=== PATIENT | male | born 1965 | race American Indian/Alaskan Native ===

== ENCOUNTER 2017-02-08 07:30 | Day surgery (SDC) | payer OTHER ==
[~2017-02-08 07:30] MED LIST: Midazolam 1 MG/ML 2 ML SDV ONE; fentaNYL 100 MCG/2 ML SDV ONE
[2017-02-08] MEDS ORDERED: Dextrose 5%-0.45% NaCl 1,000 ML IV SCH (08:15)
[2017-02-08] MEDS ORDERED: fentaNYL 100 MCG/2 ML SDV IV ONE ×3 (08:32→15:08)
[2017-02-08] MEDS ORDERED: Midazolam 1 MG/ML 2 ML SDV IV ONE ×5 (08:33→15:08)
[2017-02-08 10:48] VITALS: BP 124/84
--- NOTE | 2017-02-08 11:10 | LETTER ---
02/08/2017 Dr. Del Angel [facility] [address] [place] [address] RE: OLENANASIRMichelle SHAIKH : [address] Angel: Mr. Juan Manuel Levi had colonoscopic examination done this morning and he tolerated the procedure well. I herewith send a copy of the endoscopy note and photographs for your review. Thank you. Sincerely, [facility] /[id number]
--- NOTE | 2017-02-08 11:32 | OR ---
DATE: 02/08/2017 PROCEDURE: Total colonoscopy. INSTRUMENT USED: CF-H180AL Olympus video colonoscope. Olympus disposable distal attachment. PREMEDICATIONS: Fentanyl 100 mcg intravenous, Versed 4 mg intravenous. The procedure was done under pulse oximetry, BP recording, and recovery operator helper. INDICATION: The patient with rectal bleeding. Colonoscopic examination is done for detection of any polypoid lesions and removal, endoscopic hemostasis therapy if needed. DESCRIPTION OF PROCEDURE: Initial rectal exam was unremarkable. Rigid anoscopy showed small internal hemorrhoids without bleeding from them. The colonoscope was passed with ease up to the ileocecal area, photographs were taken of the normal-appearing cecum, identified by landmarks of appendiceal orifice and double-bulged ileocecal folds. No bleeding was noted from any of the visualized areas at the commencement of the examination. No stricture. No vascular ectasia. No large isolated ulcerations seen. No evidence of diffuse inflammatory bowel disease in the form of friability, contact bleeding, or ulcerations. No polyp or tumor mass identified. Probing the proximal sides of folds and flexures, using adequate distention and clearing up the stool material, withdrawal of the scope was made, cecum to rectum time over 6 minutes. No bleeding was noted from any of the visualized areas at the completion of examination. IMPRESSION: Internal hemorrhoids. The patient tolerated the procedure well. [facility] /[id number]
== END 2017-02-08 10:51 | disposition home or self-care (01) ==
LOC: DL.ENDO 07:30
PROVIDERS: ATTEND Internal Medicine Gastroenterology
DX: K64.8 Other hemorrhoids (principal); I10 Essential (primary) hypertension; E11.9 Type 2 diabetes mellitus without complications; E78.5 Hyperlipidemia, unspecified; E66.9 Obesity, unspecified; F17.210 Nicotine dependence, cigarettes, uncomplicated; Z79.899 Other long term (current) drug therapy; Z98.890 Other specified postprocedural states; Z72.0 Tobacco use
CPT/HCPCS: 45378; J2250; J3010; J7042

== ENCOUNTER 2021-11-18 22:32 | Emergency (ER) | payer MEDICAID, OTHER ==
[2021-11-18 22:53] VITALS: PULSE 90
[2021-11-18 23:01] VITALS: BP 150/95
--- NOTE | 2021-11-18 23:24 | EDM.PDOC ---
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 Thigh pain intermittent. Left Upper Leg Pain Score (Numeric/FACES): 5 - Related Data Allergies Allergy/AdvReac Type Severity Reaction Status Date / Time No Known Allergies Allergy Verified 11/18/21 22:53 Home Meds: Home Meds Aspirin [Halfprin] 81 mg PO DAILY 02/05/17 [History] Cetirizine [ZyrTEC] 10 mg PO DAILY 02/05/17 [History] atorvaSTATin [Lipitor] 10 mg PO DAILY 02/05/17 [History] glipiZIDE [Glucotrol] 5 mg PO DAILY 02/05/17 [History] lisinopriL [Zestril] 40 mg PO DAILY 02/05/17 [History] metFORMIN HCl [Metformin HCl] 1,000 mg PO BIDMEALS 02/05/17 [History] Magnesium Oxide 1 tab PO DAILY 02/08/17 [History] Past Medical History HEENT History: Reports: Cataract Cardiovascular History: Reports: High Cholesterol, Hypertension Respiratory History: Reports: Asthma, SOB Gastrointestinal History: Reports: Chronic Constipation Genitourinary History: Reports: None Musculoskeletal History: Reports: Arthritis, Back Pain, Chronic Neurological History: Reports: None Psychiatric History: Reports: None Endocrine/Metabolic History: Reports: Diabetes, Type II, Obesity/BMI 30+ Hematologic History: Reports: Other (See Below) Other Hematologic History: LOW MG Immunologic History: Reports: None Oncologic (Cancer) History: Reports: None Dermatologic History: Reports: None - Infectious Disease History Infectious Disease History: Reports: Chicken Pox, Novel Coronavirus, Shingles - Past Surgical History Head Surgeries/Procedures: Reports: None HEENT Surgical History: Reports: None Cardiovascular Surgical History: Reports: None Respiratory Surgical History: Reports: None GI Surgical History: Reports: Other (See Below) Other GI Surgeries/Procedures: PERIRECTAL LUMP SURGERY Musculoskeletal Surgical History: Reports: None Social & Family History - Tobacco Use Tobacco Use Status *Q: Current Every Day Tobacco User Years of Tobacco use: 30 Packs/Tins Daily: 1 Second Hand Smoke Exposure: Yes - Caffeine Use Caffeine Use: Reports: Coffee Other Caffeine Use: 2 CUP COFFEE - Recreational Drug Use Recreational Drug Use: Yes Drug Use in Last 12 Months: Yes Recreational Drug Type: Reports: Marijuana/Hashish Recreational Drug Use Frequency: Rarely ED ROS GENERAL - Review of Systems Review Of Systems: Comprehensive ROS is negative, except as noted in HPI. ED EXAM, GENERAL - Physical Exam Exam: See Below Exam Limited By: No Limitations General Appearance: Alert, Anxious, Obese Eye Exam: Bilateral Eye: EOMI, PERRL Ears: Normal External Exam, Normal TMs Nose: Normal Inspection Throat/Mouth: Normal Inspection, Normal Voice, No Airway Compromise Head: Atraumatic, Normocephalic Neck: Normal Inspection Respiratory/Chest: No Respiratory Distress, Lungs Clear, Normal Breath Sounds Cardiovascular: Normal Peripheral Pulses, Regular Rate, Rhythm GI/Abdominal: Normal Bowel Sounds, No Distention Back Exam: Full Range of Motion Extremities: Normal Inspection, Normal Range of Motion. No: Limited Range of Motion Neurological: Alert, Oriented, Normal Cognition Psychiatric: Normal Affect Skin Exam: Warm, Dry, Intact, Normal Color #1 Interpretation EKG Date: 11/18/21 Time: 23:05 Rhythm: NSR Rate (Beats/Min): 88 P-Wave: Present QRS: Normal ST-T: Normal QT: Normal Comparison: NA - No Prior EKG Course - Vital Signs Last Recorded V/S: Last Vital Signs Temp 98.9 F 11/18/21 22:46 Pulse 90 11/18/21 22:46 Resp 18 11/18/21 22:46 BP 150/95 H 11/18/21 23:00 Pulse Ox 98 11/18/21 22:46 Orthostatic Blood Pressure [ 146/83 Standing] Orthostatic Blood Pressure [ 153/91 Sitting] Orthostatic Blood Pressure [ 151/86 Supine] - Orders/Labs/Meds Labs: Laboratory Tests 11/18/21 11/18/21 11/18/21 Range/Units 23:15 23:15 23:15 WBC 4.9 L (5.0-10.0) 10^3/uL RBC 4.65 (4.6-6.2) 10^6/uL Hgb 14.0 (14.0-18.0) g/dL Hct 42.3 (40.0-54.0) % MCV 91.0 (80-100) fL MCH 30.1 (27.0-34.0) pg MCHC 33.1 (33.0-35.0) g/dL Plt Count 216 (150-450) 10^3/uL Neut % (Auto) 61.0 (42.2-75.2) % Lymph % (Auto) 23.0 (20.5-50.1) % Stonewall % (Auto) 10.5 H (2-8) % Eos % (Auto) 5.3 H (1.0-3.0) % Baso % (Auto) 0.2 (0.0-1.0) % D-Dimer, Quantitative 131 (0-400) ng/mL Sodium 135 L (136-145) mmol/L Potassium 4.0 (3.5-5.1) mmol/L Chloride 100 (98-107) mmol/L Carbon Dioxide 23 (21-32) mmol/L Anion Gap 16.0 H (7-13) mEq/L BUN 25 H (7-18) mg/dL Creatinine 1.24 (0.70-1.30) mg/dL Est Cr Clr Drug Dosing 65.89 mL/min Estimated GFR (MDRD) > 60 BUN/Creatinine Ratio 20.2 (No establ ref range) Glucose 184 H (70-99) mg/dL Calcium 8.7 (8.5-10.1) mg/dL Total Bilirubin 0.2 (0.2-1.0) mg/dL AST 13 L (15-37) U/L ALT 27 (16-63) U/L Alkaline Phosphatase 75 (46-116) U/L Troponin I High Sens 5 (<=76) pg/mL Total Protein 7.5 (6.4-8.2) g/dL Albumin 3.7 (3.4-5.0) g/dL Globulin 3.8 Albumin/Globulin Ratio 1.0 Influenza Type A RNA (NEGATIVE) Influenza Type B RNA (NEGATIVE) SARS-CoV-2 RNA (DAVID) (NEGATIVE) 11/18/21 Range/Units 23:34 WBC (5.0-10.0) 10^3/uL RBC (4.6-6.2) 10^6/uL Hgb (14.0-18.0) g/dL Hct (40.0-54.0) % MCV (80-100) fL MCH (27.0-34.0) pg MCHC (33.0-35.0) g/dL Plt Count (150-450) 10^3/uL Neut % (Auto) (42.2-75.2) % Lymph % (Auto) (20.5-50.1) % Stonewall % (Auto) (2-8) % Eos % (Auto) (1.0-3.0) % Baso % (Auto) (0.0-1.0) % D-Dimer, Quantitative (0-400) ng/mL Sodium (136-145) mmol/L Potassium (3.5-5.1) mmol/L Chloride (98-107) mmol/L Carbon Dioxide (21-32) mmol/L Anion Gap (7-13) mEq/L BUN (7-18) mg/dL Creatinine (0.70-1.30) mg/dL Est Cr Clr Drug Dosing mL/min Estimated GFR (MDRD) BUN/Creatinine Ratio (No establ ref range) Glucose (70-99) mg/dL Calcium (8.5-10.1) mg/dL Total Bilirubin (0.2-1.0) mg/dL AST (15-37) U/L ALT (16-63) U/L Alkaline Phosphatase (46-116) U/L Troponin I High Sens (<=76) pg/mL Total Protein (6.4-8.2) g/dL Albumin (3.4-5.0) g/dL Globulin Albumin/Globulin Ratio Influenza Type A RNA Negative (NEGATIVE) Influenza Type B RNA Negative (NEGATIVE) SARS-CoV-2 RNA (DAVID) Negative (NEGATIVE) Departure - Departure Time of Disposition: 00:46 Disposition: Home, Self-Care 01 Condition: Good Clinical Impression: Left thigh pain Hypertensive heart disease Qualifiers: Heart failure presence: without heart failure Qualified Code(s): I11.9 - Hypertensive heart disease without heart failure Referrals: José Miguel Forrester [Primary Care Provider] - Forms: ED Department Discharge Additional Instructions: alternate tylenol and ibuprofen every 4 hours as needed for discomfort take home medications as prescribed rest decrease or stop tobacco use clinic recheck BP
[2021-11-18 23:42] LABS: CHLORIDE,CL 100 mmol/L (98-107); SODIUM,NA 135 mmol/L (136-145)
[2021-11-19 00:28] LABS: CORONAVIRUS COVID-19 NAA NEGATIVE (NEGATIVE)
== END 2021-11-19 00:59 | disposition home or self-care (01) ==
LOC: DL.ED 22:32
DX: M79.652 Pain in left thigh (principal); I11.0 Hypertensive heart disease with heart failure; I50.9 Heart failure, unspecified; E78.00 Pure hypercholesterolemia, unspecified; J45.909 Unspecified asthma, uncomplicated; M19.90 Unspecified osteoarthritis, unspecified site; E11.9 Type 2 diabetes mellitus without complications; E66.9 Obesity, unspecified; Z68.41 Body mass index [BMI] 40.0-44.9, adult; Z72.0 Tobacco use; Z79.82 Long term (current) use of aspirin; Z79.84 Long term (current) use of oral hypoglycemic drugs; Z79.899 Other long term (current) drug therapy; Z20.822 Contact with and (suspected) exposure to COVID-19
CPT/HCPCS: 0240U; 36415; 80053; 84484; 85025; 85379; 93005; 99284

== ENCOUNTER 2022-05-02 14:54 | Emergency (ER) | payer MEDICAID ==
[2022-05-02 15:12] VITALS: BP 165/92; PULSE 86
[2022-05-02 16:10] LABS: ANION GAP 13.1 mEq/L (7-13); CHLORIDE,CL 102 mmol/L (98-107); SODIUM,NA 139 mmol/L (136-145)
[2022-05-02] MEDS ORDERED: Magnesium Sulfate/Water 2 GM in Premix Bag 1 BAG IV ONE ×2 (16:19→16:50)
== END 2022-05-02 17:31 | disposition home or self-care (01) ==
LOC: DL.ED 14:54
DX: E83.42 Hypomagnesemia (principal); E78.00 Pure hypercholesterolemia, unspecified; I10 Essential (primary) hypertension; E11.9 Type 2 diabetes mellitus without complications; F17.210 Nicotine dependence, cigarettes, uncomplicated; E66.9 Obesity, unspecified; Z68.39 Body mass index [BMI] 39.0-39.9, adult; Z86.16 Personal history of COVID-19
CPT/HCPCS: 36415; 71045; 80053; 82150; 83690; 83735; 83880; 84443; 84484; 85025; 93005; 96365; 96366; 99285; J3475; 93010

== ENCOUNTER 2024-02-26 13:21 | Emergency (ER) | payer MEDICAID ==
[2024-02-26 13:44] VITALS: BP 152/89; PULSE 81
[2024-02-26 14:16] LABS: BASOPHILS PERCENT AUTO 0.1 % (0.0-1.0); EOSINOPHILS PERCENT AUTO 1.9 % (1.0-3.0); HEMATOCRIT 41.7 % (40.0-54.0); LYMPHOCYTES PERCENT AUTO 16.9 % (20.5-50.1); MEAN CORPUSCULAR HEMOGLOBIN 29.4 pg (27.0-34.0); MEAN CORPUSCULAR HGB CONC 33.6 g/dL (33.0-35.0); MEAN CORPUSCULAR VOLUME 87.4 fL (80-100); MONOCYTES PERCENT AUTO 6.8 % (2-8); NEUTROPHILS PERCENT AUTO 74.3 % (42.2-75.2); PLATELET COUNT,PLT 209 10^3/uL (150-450); RED BLOOD CELL COUNT 4.77 10^6/uL (4.6-6.2); WHITE BLOOD CELL COUNT,WBC 6.8 10^3/uL (5.0-10.0)
[2024-02-26] MEDS: Acetaminophen 500 MG Tab PO ONE (14:29)
[2024-02-26 14:37] LABS: ALANINE AMINOTRANSFERASE,ALT 28 U/L (16-63); ALKALINE PHOSPHATASE 95 U/L (46-116); ASPARTATE AMNIOTRANSFERASE,AST 13 U/L (15-37); BILIRUBIN TOTAL 0.4 mg/dL (0.2-1.0); BLOOD UREA NITROGEN,BUN 13 mg/dL (7-18); BUN/CREATININE RATIO 13.1 (No establ ref range); CALCIUM 9.2 mg/dL (8.5-10.1); CARBON DIOXIDE,CO2 25 mmol/L (21-32); CHLORIDE,CL 101 mmol/L (98-107); CREATININE 0.99 mg/dL (0.70-1.30); EST CRCL DRUG DOSING (CG) 80.61 mL/min; GLUCOSE RANDOM 143 mg/dL (70-99); LIPASE 64 U/L (16-77); PROTEIN TOTAL,TP 7.9 g/dL (6.4-8.2); SODIUM,NA 138 mmol/L (136-145)
[2024-02-26 14:42] LABS: C-REACTIVE PROTEIN < 0.50 ng/dL (<=0.50); ESTIMATED GFR 89 mL/min (>=60)
[2024-02-26 14:45] LABS: APPEARANCE,URINE CLEAR (CLEAR); BILIRUBIN,URINE NEGATIVE (NEGATIVE); COLOR,URINE YELLOW (YELLOW); GLUCOSE,URINE NEGATIVE (NEGATIVE); KETONES,URINE NEGATIVE (NEGATIVE); LEUKOCYTE ESTERASE,URINE NEGATIVE (NEGATIVE); NITRITE,URINE NEGATIVE (NEGATIVE); OCCULT BLOOD,URINE NEGATIVE (NEGATIVE); PH,URINE 6.5 (5.0-9.0); PROTEIN,URINE NEGATIVE (NEGATIVE); UROBILINOGEN,URINE 0.2 mg/dL (0.2-1.0)
[2024-02-26] MEDS: Ketorolac 30 MG/ML SDV IVPUSH ONE (15:18)
[2024-02-26] MEDS: Sodium Chloride 0.9% 10 ML Syringe FLUSH PRN (15:19)
[2024-02-26] MEDS: Iopamidol 612 MG/ML 100 ML Bottle IVPUSH ONE (16:11)
== END 2024-02-26 16:45 | disposition home or self-care (01) ==
LOC: DL.ED 13:21
DX: R10.12 Left upper quadrant pain (principal); I10 Essential (primary) hypertension; E11.9 Type 2 diabetes mellitus without complications; E66.9 Obesity, unspecified; F17.210 Nicotine dependence, cigarettes, uncomplicated; Z86.16 Personal history of COVID-19; Z79.84 Long term (current) use of oral hypoglycemic drugs; Z79.899 Other long term (current) drug therapy; Z79.82 Long term (current) use of aspirin; Z68.34 Body mass index [BMI] 34.0-34.9, adult
CPT/HCPCS: 36415; 74018; 74177; 80053; 81003; 83690; 85025; 86140; 96374; 99284; A9270; J1885; Q9967; 99283; J3490

== ENCOUNTER 2024-09-02 06:16 | Emergency (ER) | payer MEDICAID ==
[2024-09-02] MEDS: Iopamidol 612 MG/ML 100 ML Bottle IVPUSH ONE (06:23)
[2024-09-02] MEDS: Famotidine 20 MG/2 ML SDV IVPUSH ONE (06:37)
[2024-09-02] MEDS: Ondansetron 4 MG/2 ML SDV IVPUSH ONE (06:37)
[2024-09-02] MEDS: Sodium Chloride 0.9% 1,000 ML IV ONE (06:37)
[2024-09-02 06:41] LABS: ALANINE AMINOTRANSFERASE,ALT 26 U/L (16-63); ALKALINE PHOSPHATASE 97 U/L (46-116); ASPARTATE AMNIOTRANSFERASE,AST 16 U/L (15-37); BILIRUBIN TOTAL 0.4 mg/dL (0.2-1.0); BLOOD UREA NITROGEN,BUN 20 mg/dL (7-18); BUN/CREATININE RATIO 19.4 (No establ ref range); CALCIUM 9.3 mg/dL (8.5-10.1); CARBON DIOXIDE,CO2 27 mmol/L (21-32); CHLORIDE,CL 100 mmol/L (98-107); CREATININE 1.03 mg/dL (0.70-1.30); GLUCOSE RANDOM 168 mg/dL (70-99); LIPASE 80 U/L (16-77); MAGNESIUM 1.4 mg/dL (1.8-2.4); PROTEIN TOTAL,TP 7.9 g/dL (6.4-8.2); SODIUM,NA 133 mmol/L (136-145)
[2024-09-02 06:42] LABS: BASOPHILS PERCENT AUTO 0.1 % (0.0-1.0); EOSINOPHILS PERCENT AUTO 1.6 % (1.0-3.0); HEMATOCRIT 38.8 % (40.0-54.0); HEMOGLOBIN 12.9 g/dL (14.0-18.0); LYMPHOCYTES PERCENT AUTO 10.7 % (20.5-50.1); MEAN CORPUSCULAR HEMOGLOBIN 29.8 pg (27.0-34.0); MEAN CORPUSCULAR HGB CONC 33.2 g/dL (33.0-35.0); MEAN CORPUSCULAR VOLUME 89.6 fL (80-100); MONOCYTES PERCENT AUTO 4.1 % (2-8); NEUTROPHILS PERCENT AUTO 83.5 % (42.2-75.2); PLATELET COUNT,PLT 189 10^3/uL (150-450); RED BLOOD CELL COUNT 4.33 10^6/uL (4.6-6.2); WHITE BLOOD CELL COUNT,WBC 8.2 10^3/uL (5.0-10.0)
[2024-09-02 06:43] LABS: ESTIMATED GFR 85 mL/min (>=60); ETHANOL BLOOD MEDICAL < 3 mg/dL (0)
[2024-09-02 09:14] VITALS: BP 142/73; PULSE 68
[2024-09-02] MEDS: Take Home: Ondansetron 4 MG Tab.DIS, 5 Tab Pack PO ONE (09:28)
== END 2024-09-02 09:33 | disposition home or self-care (01) ==
LOC: DL.ED 06:16
DX: E86.0 Dehydration (principal); R11.2 Nausea with vomiting, unspecified; F17.200 Nicotine dependence, unspecified, uncomplicated; I10 Essential (primary) hypertension; E11.9 Type 2 diabetes mellitus without complications; E66.9 Obesity, unspecified; Z86.16 Personal history of COVID-19; Z79.82 Long term (current) use of aspirin; Z79.899 Other long term (current) drug therapy; Z79.84 Long term (current) use of oral hypoglycemic drugs
CPT/HCPCS: 36415; 74177; 80053; 80307; 83690; 83735; 84484; 85025; 87804; 93005; 96361; 96374; 96375; 99285-25; J2405; J3490; J7030; Q0162; Q9967; U0002